=== PATIENT | female | born 1990 | race Caucasian/White ===

== ENCOUNTER 2019-03-28 10:28 | Emergency (ER) | payer SELFPAY ==
[~2019-03-28] VITALS: Ht 162.6 cm; Wt 56.2 kg
[2019-03-28 10:38] VITALS: BP 119/81
[2019-03-28] MEDS ORDERED: IBUPROFEN 400 MG TABLET ONE (11:26)
[2019-03-28] MEDS ORDERED: ONDANSETRON 4 MG TAB.RAPDIS ONE (11:27)
[2019-03-28] MEDS ORDERED: ONDANSETRON 4 MG TAB.RAPDIS SL ONE (11:30)
[2019-03-28] MEDS ORDERED: IBUPROFEN 400 MG TABLET PO ONE (11:30)
[2019-03-28] MEDS ORDERED: ACETAMINOPHEN ES 500 MG TABLET ONE (11:32)
[2019-03-28] MEDS ORDERED: ACETAMINOPHEN 325 MG TABLET PO ONE (12:00)
== END 2019-03-28 12:12 | disposition home or self-care (01) ==
LOC: ER 10:30
DX: S39.012A Strain of muscle, fascia and tendon of lower back, initial encounter (principal); R51 Headache; M54.9 Dorsalgia, unspecified; M54.2 Cervicalgia; F17.210 Nicotine dependence, cigarettes, uncomplicated; Z88.5 Allergy status to narcotic agent; Z94.0 Kidney transplant status; V49.59XA Passenger injured in collision with other motor vehicles in traffic accident, initial encounter; Y93.89 Activity, other specified; Y92.488 Other paved roadways as the place of occurrence of the external cause; Y99.8 Other external cause status
CPT/HCPCS: 99283; 99406; Q0162